=== PATIENT | male | born 1950 | race Caucasian/White ===

== ENCOUNTER 2019-10-06 02:02 | Outpatient (RCR) | payer MEDICARE, OTHER, SELFPAY ==
[2019-10-07 10:32] LABS: PSA, Diagnostic 2.1 ng/mL (0.0-4.5)
== END 2019-10-21 23:59 | disposition home or self-care (01) ==
LOC: INF 02:02
PROVIDERS: PCP Internal Medicine; Visit Provider Nurse Practitioner Family
DX: C61 Malignant neoplasm of prostate (principal)
CPT/HCPCS: 36415; 84153